=== PATIENT | male | born 1995 | race African-American/Black ===

== ENCOUNTER 2018-04-20 21:46 | Emergency (ER) | payer SELFPAY ==
[~2018-04-20] VITALS: Ht 180.3 cm; Wt 93.6 kg
[2018-04-20 22:02] VITALS: Ht 180.3 cm; Wt 93.6 kg
[2018-04-20 23:02] VITALS: BP 140/88
== END 2018-04-20 23:01 | disposition home or self-care (01) ==
LOC: D.ER 21:46
DX: S63.502A Unspecified sprain of left wrist, initial encounter (principal); Y93.67 Activity, basketball; Y92.89 Other specified places as the place of occurrence of the external cause